=== PATIENT | female | born 1930 | race Caucasian/White ===

== ENCOUNTER 2016-10-16 19:09 | Emergency (ER) | payer MEDICARE, OTHER ==
[2016-10-16 19:10] VITALS: BMI 32.9
--- NOTE | 2016-10-16 19:21 | EDPRACDOC ---
- General Information Chief Complaint: Nausea,Vomiting,Diarrhea Stated Complaint: PAIN ALL OVER,C-DIFF Time Seen by Provider: 10/16/16 19:14 Home Medications: Home Medications Levothyroxine Sodium [Synthroid] 50 mcg PO DAILY 08/30/14 Spironolactone [Aldactone] 25 mg PO DAILY 08/30/14 Multivitamin [Daily Vitamin] 1 tab PO DAILY 01/03/15 Pravastatin Sodium 40 mg PO HS 01/03/15 Omeprazole [Prilosec] 20 mg PO DAILY 01/04/15 Aspirin/Calcium Carbonate/Mag [Aspirin Buffered 325 mg Tab] 325 mg PO DIR PRN 08/13/16 Carvedilol [Coreg] 37.5 mg PO BID 08/13/16 Ergocalciferol (Vitamin D2) [Vitamin D] 50,000 units PO FR 08/13/16 Guaifenesin [Q-Tussin] 10 mg PO Q6H PRN 08/13/16 Hydrocortisone/Aloe Vera [Hydrocortisone-Aloe 0.5% Cream] 2 gm TOP Q6H PRN 08/13 Magnesium Hydroxide [Milk of Magnesia] 30 ml PO DAILY PRN 08/13/16 Magnesium Hydroxide/Al Hydrox [Mylanta Liquid] 30 ml PO Q4H PRN 08/13/16 Neomy Sulf/Bacitra/Polymyxin B [Neosporin Ointment] 1 gm TOP Q12H PRN 08/13/16 Vitamin A 8,000 unit PO DAILY 08/13/16 Acetaminophen Ex Str Tablet [TYLENOL EXTRA STRENGTH Tablet] 500 mg PO QID Cyanocobalamin (Vitamin B-12) [B-12] 1,000 mcg PO DAILY 10/16/16 Donepezil HCl [Aricept] 10 mg PO HS 10/16/16 Fesoterodine Fumarate [Toviaz] 8 mg PO DAILY 10/16/16 Ondansetron HCl [Zofran] 4 mg PO Q4H PRN 10/16/16 Allergies/Adverse Reactions: Allergies Allergy/AdvReac Type Severity Reaction Status Date / Time CIARA Inhibitors Allergy Hives* Verified 10/16/16 20:13 Sulfa (Sulfonamide Allergy Hives* Verified 10/16/16 20:13 Antibiotics) - History of Present Illness Onset: UNKNOWN HPI: EMS STATES PT DX WITH C.DIFF TODAY, WAS BEING "ISOLATED" AT [facility], PT BECAME UPSET AT BEING ISOLATED AND DEMANDED TO COME TO THE HOSPITAL. PT REPORTS DIARRHEA X 3 TODAY, PT STATES "THEY KEEP ME LOCKED IN THAT ROOM ALL ALONE AND WON'T LET ME SEE THE DOCTOR." PT DID SEE HER PCP YESTERDAY PER HER REPORT. PT STATES SHE "HURTS ALL OVER". WHEN ASKED WHY SHE CAME TO THE HOSPITAL PT STATES "BECAUSE I ASKED TO." PT STATES SHE TOLD STAFF AT [facility] TO "CALL THE POLICE" BECAUSE SHE WAS BEING LOCKED UP. Description: Reports: Spontaneous Recent: Denies: Travel, Contact Exposure, Antibiotic Use, Laxative Use, Other Recent Ingestion of: Reports: Nothing Relevant History: Reports: None Diarrhea Quality: Reports: Watery Associated Signs & Symptoms: Reports: Abdominal Pain Pain Quality: Reports: Aching Pain Location: Reports: Diffuse ED Past Medical History - History Reviewed Yes Nurses notes reviewed and agree except as marked - Patient Medical History Cardiac History: Reports: Hypertension, Hypercholesterolemia Respiratory History: Denies: Pneumonia GI/ History: Reports: Gastroesophageal Reflux, Diverticulosis Musculoskeletal History: Reports: Arthritis Psychological History: Denies: Depression Systemic History: Reports: Hypothyroidism - Family Medical History Reports: Hypertension (MOTHER AND FATHER), Cancer (GRANDFATHER-STOMACH). Denies : Diabetes, Stroke, Cardiac Disorders - Social Medical History Smoking Status: Never smoker ETOH: None Substance Abuse: None Lives In: Assisted Living EDM Review of Systems - Review of Systems Constitutional: Fatigue, Weakness. negative: Chills, Fever Eyes: negative: Blurred Vision, Double Vision Ears: negative: Drainage Throat: negative: Pain Nose: negative: Congestion, Discharge Respiratory: negative: Cough, Shortness of Breath, Wheezing Cardiovascular: negative: Chest Pain, Palpitations Gastrointestinal: Diarrhea, Pain. negative: Nausea, Vomiting Genitourinary: negative: Dysuria, Frequency Neurological: negative: Dizziness, Headache, Numbness, Weakness Musculoskeletal: No Symptoms Reported Integumentary: No Symptoms Reported - Physical Exam Constitutional: Alert (Awake), No apparent distress Oriented to: Time, Person, Place Last recorded Vital Signs: Oxygen Pulse Oxygen Saturation O2 Device Oxygen Flow Rate Fraction of Inspired Oxygen ( FIO2) - HEENT Head: Normal ( normocephalic) Eye Exam: Normal (PERRL, EOMI, Sclera white) Oropharynx: Normal (Pharynx:Moist without exudate,Gums-no swelling) Tympanic Membrane: Normal ENT EAC: Normal TMJ: Normal Nose: No Symptoms Reported (septum midline) Neck: Normal (FROM, trachea at midline) - Respiratory/Cardiovascular Respiratory: Normal - CTA (BBS clear to auscultation without adventitious sounds ) Cardiovascular: Normal (RRR without murmur, gallop or rub) - GI Auscultation: Normal (NABS) Palpation: Normal (Soft,No rebound or guarding, non distended) Tenderness: Non tender Randolph's Sign: Negative - Musculoskeletal Back: Normal (Non-Tender) Extremities: Normal (Normal tone, Pulses 2+ No cyanosis or edema, FROM) - Integumentary Skin: Normal, Warm, Dry Lymphatics: Normal (no adenopathy) - Neurologic Memory Impaired: Normal Motor Function: Normal (Normal tone, Pulses 2+ No cyanosis or edema, FROM) Cranial Nerve: Normal (CN II-X11 intact sensation, strength 5/5) Cerebellar: Normal Mood Description: Normal Perception: Normal - Differential Diagnosis Bacterial Diarrhea, Viral Diarrhea, Inflammatory BD - Re-evaluation Re-evaluation 1 Re-evaluation Time: 21:24 (BP IMPROVED, LABS REVIEWED, PT DOES HAVE C.DIFF, LEVAQUIN AND FLAGYL GIVEN IN ED) - Results 10/16/16 19:40 10/16/16 19:40 10/16/16 21:25 Laboratory Results - last 24 hr 10/16/16 10/16/16 10/16/16 19:40 19:40 19:40 WBC 7.7 RBC 4.06 L Hgb 13.2 Hct 38.7 MCV 96 MCH 32.6 H MCHC 34.2 RDW 12.7 Plt Count 197 MPV 7.8 Neut % (Auto) 54.3 Lymph % (Auto) 31.2 [place] % (Auto) 13.1 H Eos % (Auto) 0.9 Baso % (Auto) 0.5 Absolute Neuts (auto) 4.16 Absolute Lymphs (auto) 2.39 Sodium 135 L Potassium 3.9 Chloride 97 L Carbon Dioxide 26 Anion Gap 16 BUN 15 Creatinine 0.80 Estimated GFR (MDRD) > 60 Glucose 100 H Calculated Osmolality 261 L Calcium 9.1 Total Bilirubin 0.7 AST 23 ALT 33 Alkaline Phosphatase 95 Total Protein 7.4 Albumin 4.3 Lipase 154 Urine Color Yellow Urine Clarity Clear Urine pH 6.0 Ur Specific Triplett 1.010 Urine Protein Neg Urine Glucose (UA) Neg Urine Ketones 1+ H Urine Occult Blood Neg Urine Nitrite Neg Urine Bilirubin Neg Urine Urobilinogen <2.0 Ur Leukocyte Esterase Neg Urine RBC 0-2 Urine WBC 0-2 Ur Epithelial Cells Occ Urine Mucus Occ Decision Time to Discharge: 21:25 - Departure Disposition: Home Condition: Stable Final Diagnosis: C. difficile diarrhea, Agitation Instructions: Clostridium Difficile Infection (ED) Education/Counseling Given To: Patient, Other ([facility] STAFF) Education/Counseling Given Regarding: Diagnosis, Treatment, Prognosis, Follow Up Referrals: Santino Miller MD [Primary Care Provider] - One Week Additional Instructions: TAKE ALL MEDICATIONS PRESCRIBED, START ANTIBIOTICS IN THE MORNING.
[2016-10-16] MEDS ORDERED: NS 1,000 ML IV ONE (19:23)
[2016-10-16 19:25] VITALS: TEMP 98
[2016-10-16] MEDS ORDERED: hydrALAZINE 20 MG/ML VIAL IV ONE (19:28)
[2016-10-16] MEDS ORDERED: LEVOFLOXACIN 500 MG TAB PO ONE (19:41)
[2016-10-16] MEDS ORDERED: METRONIDAZOLE 500 MG TAB PO ONE (19:41)
[2016-10-16 19:57] LABS: AUTOMATED BASOPHIL 0.5 % (0-2); AUTOMATED EOSINOPHIL 0.9 % (0-5); AUTOMATED LYMPH 31.2 % (17-44); AUTOMATED MONOCYTE 13.1 % (3-10); AUTOMATED NEUTROPHIL 54.3 % (45-76); MPV 7.8 fL (7.4-10.4)
[2016-10-16 20:08] LABS: LEUKOCYTES/URINE NEG (NEGATIVE); NITRITE/URINE NEG (NEGATIVE); RBC/URINE 0-2 (0-5); URINE OCCULT BLOOD NEG (NEG/TRACE); WBC/URINE 0-2 (0-5)
[2016-10-16] MEDS ORDERED: LORAZEPAM 2 MG/ML VIAL IM ONE (20:11)
[2016-10-16] MEDS ORDERED: LORAZEPAM 2 MG/ML VIAL IV ONE (20:12)
[2016-10-16 20:19] LABS: BLOOD UREA NITROGEN 15 MG/DL (7-17); CALCIUM 9.1 MG/DL (8.4-10.2); CALCULATED OSMOLALITY 261 MOs/Kg (270-290); CHLORIDE 97 mEq/L (98-107); GLUCOSE 100 MG/DL (70-99); SODIUM LEVEL 135 mEq/L (137-146); TOTAL PROTEIN 7.4 G/DL (6.3-8.2)
[2016-10-16 21:08] VITALS: BP 173/93; PULSE 94
== END 2016-10-16 21:45 | disposition short-term general hospital (02) ==
LOC: ED 19:09
DX: A04.7 Enterocolitis due to Clostridium difficile (principal); R45.1 Restlessness and agitation; I10 Essential (primary) hypertension; E78.00 Pure hypercholesterolemia, unspecified; K21.9 Gastro-esophageal reflux disease without esophagitis; E03.9 Hypothyroidism, unspecified; Z79.899 Other long term (current) drug therapy
CPT/HCPCS: 36415; 80053; 81001; 83690; 85025; 96361; 96374; 96375; 99284; A9270; J0360; J2060; J3490

== ENCOUNTER 2016-11-07 22:07 | Emergency (ER) | payer MEDICARE, OTHER ==
[2016-11-07 22:17] VITALS: BMI 33.3
[2016-11-07] MEDS ORDERED: LORAZEPAM 1 MG TAB PO ONE (22:38)
[2016-11-07 22:40] LABS: AUTOMATED BASOPHIL 0.9 % (0-2); AUTOMATED EOSINOPHIL 0.8 % (0-5); AUTOMATED MONOCYTE 11.6 % (3-10); AUTOMATED NEUTROPHIL 51.7 % (45-76); MPV 7.6 fL (7.4-10.4)
--- NOTE | 2016-11-07 22:40 | EDPRACDOC ---
- General Information Chief Complaint: Psychiatric Illness Stated Complaint: MEDICAL EVAL Time Seen by Provider: 11/07/16 22:09 Information Source: Patient, Dispatcher Maintenance Mode of Arrival: Ambulance Home Medications: Home Medications Levothyroxine Sodium [Synthroid] 50 mcg PO DAILY 08/30/14 Spironolactone [Aldactone] 25 mg PO DAILY 08/30/14 Multivitamin [Daily Vitamin] 1 tab PO DAILY 01/03/15 Pravastatin Sodium 40 mg PO HS 01/03/15 Omeprazole [Prilosec] 20 mg PO DAILY 01/04/15 Carvedilol [Coreg] 37.5 mg PO BID 08/13/16 Guaifenesin [Q-Tussin] 10 mg PO Q6H PRN 08/13/16 Hydrocortisone/Aloe Vera [Hydrocortisone-Aloe 0.5% Cream] 2 gm TOP Q6H PRN 08/13 Magnesium Hydroxide [Milk of Magnesia] 30 ml PO DAILY PRN 08/13/16 Magnesium Hydroxide/Al Hydrox [Mylanta Liquid] 30 ml PO Q4H PRN 08/13/16 Neomy Sulf/Bacitra/Polymyxin B [Neosporin Ointment] 1 gm TOP Q12H PRN 08/13/16 Vitamin A 8,000 unit PO DAILY 08/13/16 Acetaminophen Ex Str Tablet [TYLENOL EXTRA STRENGTH Tablet] 500 mg PO QID Cyanocobalamin (Vitamin B-12) [B-12] 1,000 mcg PO DAILY 10/16/16 Donepezil HCl [Aricept] 10 mg PO HS 10/16/16 Fesoterodine Fumarate [Toviaz] 8 mg PO DAILY 10/16/16 Ondansetron HCl [Zofran] 4 mg PO Q4H PRN 10/16/16 Alprazolam [Xanax] 0.25 mg PO TID PRN 11/07/16 Aspirin 325 mg PO .ONCE PRN 11/07/16 Cholecalciferol (Vitamin D3) [Vitamin D] 50,000 unit PO .WEEKLY ON FR 11/07/16 Rissa-Lanta 30 ml PO Q4H PRN 11/07/16 Vancomycin HCl [Vancomycin] 125 mg PO .Q6H X 10D 11/07/16 Allergies/Adverse Reactions: Allergies Allergy/AdvReac Type Severity Reaction Status Date / Time CIARA Inhibitors Allergy Hives* Verified 11/07/16 22:17 Sulfa (Sulfonamide Allergy Hives* Verified 11/07/16 22:17 Antibiotics) - History of Present Illness Onset: today HPI: PT BROUGHT BY EMS DUE TO COMBATIVENESS. THE PT SAID THAT SHE'S BEEN LOCKED IN HER ROOM SINCE BEING TX'D FOR C.DIFF. PT SAID THAT THE MED TECH GIVING HER THE MEDS TONIGHT BROUGHT HER A DIFFERENT COLORED PILL. PT SAID THAT SHE ASKED THE MED TECH TO MAKE SURE THE PILL WAS CORRECT, BUT THAT PERSON BECAME MAD AT HER. PT SAID THAT SHE FEELS FINE. PT DENIES ANY FURTHER DIARRHEA. 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 Denies : Diabetes, Stroke, Cardiac Disorders - Social Medical History Smoking Status: Never smoker ETOH: None Substance Abuse: None Lives In: Assisted Living EDM Review of Systems - Review of Systems ROS Negative Except as Marked: Yes All systems reviewed and were negative except as marked - Physical Exam Constitutional: Alert (Awake), No apparent distress Oriented to: Time, Person, Place Last recorded Vital Signs: Last Vital Signs Temp 97.9 F 11/07/16 22:09 Pulse 89 11/07/16 22:09 Resp 20 11/07/16 22:09 BP 213/103 H 11/07/16 22:09 Pulse Ox 95 11/07/16 22:09 Oxygen Pulse Oxygen Saturation 95 O2 Device Room Air Oxygen Flow Rate Fraction of Inspired Oxygen ( FIO2) - HEENT Head: Normal ( normocephalic) Eye Exam: Normal (PERRL, EOMI, Sclera white) Oropharynx: Normal (Pharynx:Moist without exudate,Gums-no swelling) ENT EAC: Normal TMJ: Normal Nose: No Symptoms Reported (septum midline) Neck: Normal (FROM, trachea at midline) - Respiratory/Cardiovascular Respiratory: Normal - CTA (BBS clear to auscultation without adventitious sounds ) Cardiovascular: Normal (RRR without murmur, gallop or rub) - GI Auscultation: Normal (NABS) Palpation: Normal (Soft,No rebound or guarding, non distended) Tenderness: Non tender Randolph's Sign: Negative - Musculoskeletal Back: Normal (Non-Tender) Extremities: Normal (Normal tone, Pulses 2+ No cyanosis or edema, FROM) - Integumentary Skin: Normal, Warm, Dry Lymphatics: Normal (no adenopathy) - Neurologic Memory Impaired: Normal Motor Function: Normal (Normal tone, Pulses 2+ No cyanosis or edema, FROM) Cranial Nerve: Normal (CN II-X11 intact sensation, strength 5/5) Cerebellar: Normal Mood Description: Normal Perception: Normal - Re-evaluation Re-evaluation 1 Re-evaluation Time: 00:08 (IMPROVED) - Results 11/07/16 22:30 11/07/16 22:30 Decision Time to Discharge: 00:08 - Departure Yes I personally saw and evaluated the patient. Disposition: Home Condition: Fair Final Diagnosis: Noncompliance with medication regimen Instructions: Anxiety (ED) Education/Counseling Given To: Patient Education/Counseling Given Regarding: Diagnosis, Treatment, Follow Up Referrals: Santino Miller MD [Primary Care Provider] - One Week Prescriptions: No Action Spironolactone [Aldactone] 25 mg PO DAILY Levothyroxine Sodium [Synthroid] 50 mcg PO DAILY Multivitamin [Daily Vitamin] 1 tab PO DAILY Pravastatin Sodium 40 mg PO HS Omeprazole [Prilosec] 20 mg PO DAILY Neomy Sulf/Bacitra/Polymyxin B [Neosporin Ointment] 1 gm TOP Q12H PRN PRN Reason: SKIN ABRASIONS Guaifenesin [Q-Tussin] 10 mg PO Q6H PRN PRN Reason: Cough Hydrocortisone/Aloe Vera [Hydrocortisone-Aloe 0.5% Cream] 2 gm TOP Q6H PRN PRN Reason: Itching Magnesium Hydroxide/Al Hydrox [Mylanta Liquid] 30 ml PO Q4H PRN PRN Reason: Heartburn Or Indigestion Vitamin A 8,000 unit PO DAILY Carvedilol [Coreg] 37.5 mg PO BID Magnesium Hydroxide [Milk of Magnesia] 30 ml PO DAILY PRN PRN Reason: CONSTIPATION Fesoterodine Fumarate [Toviaz] 8 mg PO DAILY Cyanocobalamin (Vitamin B-12) [B-12] 1,000 mcg PO DAILY Donepezil HCl [Aricept] 10 mg PO HS Acetaminophen Ex Str Tablet [TYLENOL EXTRA STRENGTH Tablet] 500 mg PO QID Ondansetron HCl [Zofran] 4 mg PO Q4H PRN PRN Reason: Vomiting Aspirin 325 mg PO .ONCE PRN PRN Reason: Chest Pain Or Discomfort Cholecalciferol (Vitamin D3) [Vitamin D] 50,000 unit PO .WEEKLY ON FR Alprazolam [Xanax] 0.25 mg PO TID PRN PRN Reason: Anxiety Vancomycin HCl [Vancomycin] 125 mg PO .Q6H X 10D Rissa-Lanta 30 ml PO Q4H PRN PRN Reason: UNK
[2016-11-07 22:47] LABS: BLOOD UREA NITROGEN 14 MG/DL (7-17); CALCIUM 9.3 MG/DL (8.4-10.2); CALCULATED OSMOLALITY 261 MOs/Kg (270-290); CHLORIDE 103 mEq/L (98-107); GLUCOSE 102 MG/DL (70-99); SODIUM LEVEL 135 mEq/L (137-146); TOTAL PROTEIN 7.3 G/DL (6.3-8.2)
[2016-11-07 23:32] LABS: hTSH 3.13 uIU/mL (0.5-4.67)
[2016-11-07 23:50] LABS: CA OXALATE 1+; LEUKOCYTES/URINE NEG (NEGATIVE); NITRITE/URINE NEG (NEGATIVE); URINE OCCULT BLOOD NEG (NEG/TRACE)
[2016-11-08 00:49] VITALS: BP 190/80; PULSE 80; TEMP 98
[2016-11-08 01:40] LABS: FREE T3 4.3 pg/mL (2.77-5.27)
== END 2016-11-08 00:35 | disposition short-term general hospital (02) ==
LOC: ED 22:07
DX: Z76.0 Encounter for issue of repeat prescription (principal)
CPT/HCPCS: 36415; 80053; 81001; 84439; 84443; 84481; 85025; 99284; J3490

== ENCOUNTER 2016-11-16 20:10 | Emergency (ER) | payer MEDICARE, OTHER ==
[2016-11-16 20:10] VITALS: BMI 33.3
[2016-11-16 20:29] VITALS: TEMP 98
[2016-11-16 20:48] LABS: AUTOMATED BASOPHIL 0.6 % (0-2); AUTOMATED EOSINOPHIL 1.6 % (0-5); AUTOMATED LYMPH 24.7 % (17-44); AUTOMATED MONOCYTE 13.6 % (3-10); AUTOMATED NEUTROPHIL 59.5 % (45-76); MPV 7.6 fL (7.4-10.4)
[2016-11-16 20:54] LABS: BLOOD UREA NITROGEN 26 MG/DL (7-17); CALCIUM 9.1 MG/DL (8.4-10.2); CALCULATED OSMOLALITY 274 MOs/Kg (270-290); CHLORIDE 103 mEq/L (98-107); GLUCOSE 103 mg/dL (70-99); SODIUM LEVEL 140 mEq/L (137-146); TOTAL PROTEIN 7.3 G/DL (6.3-8.2)
[2016-11-16 20:57] LABS: PARTIAL THROMB. TIME 21.5 SEC (22-35); PT-INR 1.1
--- NOTE | 2016-11-16 21:12 | DIRPT ---
CLINICAL DATA: Chest pain for 2 days. EXAM: PORTABLE CHEST 1 VIEW COMPARISON: Chest radiograph August 11, 2016 FINDINGS: Cardiac silhouette is mildly enlarged low inspiratory examination. Fullness of pulmonary david, with increased bronchovascular markings. No pleural effusion or focal consolidation. No pneumothorax. Soft tissue planes and included osseous structures are normal. IMPRESSION: Mild bronchitic changes versus mild pulmonary vascular congestion in this low inspiratory portable examination. Electronically Signed By: Kenny Ly M.D. On: 11/16/2016 21:09
[2016-11-16] MEDS ORDERED: hydrALAZINE 20 MG/ML VIAL IV ONE (21:30)
--- NOTE | 2016-11-16 21:30 | EDPRACDOC ---
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, [place] Mode Of Arrival: Ambulance Home Medications: Home Medications Levothyroxine Sodium [Synthroid] 50 mcg PO DAILY 08/30/14 Spironolactone [Aldactone] 25 mg PO DAILY 08/30/14 Multivitamin [Daily Vitamin] 1 tab PO DAILY 01/03/15 Pravastatin Sodium 40 mg PO HS 01/03/15 Omeprazole [Prilosec] 20 mg PO DAILY 01/04/15 Carvedilol [Coreg] 37.5 mg PO BID 08/13/16 Guaifenesin [Q-Tussin] 10 mg PO Q6H PRN 08/13/16 Hydrocortisone/Aloe Vera [Hydrocortisone-Aloe 0.5% Cream] 2 gm TOP Q6H PRN 08/13 Magnesium Hydroxide [Milk of Magnesia] 30 ml PO DAILY PRN 08/13/16 Magnesium Hydroxide/Al Hydrox [Mylanta Liquid] 30 ml PO Q4H PRN 08/13/16 Neomy Sulf/Bacitra/Polymyxin B [Neosporin Ointment] 1 gm TOP Q12H PRN 08/13/16 Vitamin A 8,000 unit PO DAILY 08/13/16 Acetaminophen Ex Str Tablet [TYLENOL EXTRA STRENGTH Tablet] 500 mg PO QID Cyanocobalamin (Vitamin B-12) [B-12] 1,000 mcg PO DAILY 10/16/16 Donepezil HCl [Aricept] 10 mg PO HS 10/16/16 Fesoterodine Fumarate [Toviaz] 8 mg PO DAILY 10/16/16 Ondansetron HCl [Zofran] 4 mg PO Q4H PRN 10/16/16 Aspirin 325 mg PO .ONCE PRN 11/07/16 Cholecalciferol (Vitamin D3) [Vitamin D] 50,000 unit PO FR 11/07/16 Rissa-Lanta 30 ml PO Q4H PRN 11/07/16 Vancomycin HCl [Vancomycin] 125 mg PO .Q6H X 10D 11/07/16 Quetiapine Fumarate [Seroquel] 50 mg PO BID 11/16/16 Allergies/Adverse Reactions: Allergies Allergy/AdvReac Type Severity Reaction Status Date / Time CIARA Inhibitors Allergy Hives* Verified 11/07/16 22:17 Sulfa (Sulfonamide Allergy Hives* Verified 11/07/16 22:17 Antibiotics) - History of Present Illness Onset: 11/16/16 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 Medications/Treatment PUBLIC RELATIONS COORDINATOR Treated With Medication PUBLIC RELATIONS 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 Denies : Diabetes, Stroke, Cardiac Disorders - Social Medical History Smoking Status: Never smoker - Physical Exam Last recorded Vital Signs: Last Vital Signs Temp 98.0 F 11/16/16 20:15 Pulse 81 11/16/16 20:48 Resp 26 H 11/16/16 20:48 BP 205/75 H 11/16/16 20:48 Pulse Ox 92 11/16/16 20:48 Oxygen Pulse Oxygen Saturation 92 O2 Device Room Air Oxygen Flow Rate Fraction of Inspired Oxygen ( FIO2) - Results 11/16/16 20:35 11/16/16 20:35 WBC 7.1 xk/uL (3.8-10.8) 11/16/16 20:35 RBC 4.06 xM/uL (4.20-5.40) L 11/16/16 20:35 Hgb 13.0 g/dL (12.0-16.0) 11/16/16 20:35 Hct 39.2 % (36-47) 11/16/16 20:35 MCV 97 fL (81-99) 11/16/16 20:35 MCH 31.9 pg (27-32) 11/16/16 20:35 MCHC 33.1 g/dl (33-36) 11/16/16 20:35 RDW 12.8 % (11.5-14.5) 11/16/16 20:35 Plt Count 153 xk/uL (130-400) 11/16/16 20:35 MPV 7.6 fL (7.4-10.4) 11/16/16 20:35 Neut % (Auto) 59.5 % (45-76) 11/16/16 20:35 Lymph % (Auto) 24.7 % (17-44) 11/16/16 20:35 [place] % (Auto) 13.6 % (3-10) H 11/16/16 20:35 Eos % (Auto) 1.6 % (0-5) 11/16/16 20:35 Baso % (Auto) 0.6 % (0-2) 11/16/16 20:35 Absolute Neuts (auto) 4.19 xk/uL (1.7-8.2) 11/16/16 20:35 Absolute Lymphs (auto) 1.70 xk/uL (0.65-4.75) 11/16/16 20:35 PT 11.3 SEC (9.2-11.2) H 11/16/16 20:35 INR 1.1 11/16/16 20:35 APTT 21.5 SEC (22-35) L 11/16/16 20:35 Sodium 140 mEq/L (137-146) 11/16/16 20:35 Potassium 3.7 mEq/L (3.5-5.1) 11/16/16 20:35 Chloride 103 mEq/L (98-107) 11/16/16 20:35 Carbon Dioxide 26 mMOL/L (22-33) 11/16/16 20:35 Anion Gap 15 mEq/L (8-16) 11/16/16 20:35 BUN 26 MG/DL (7-17) H 11/16/16 20:35 Creatinine 0.90 MG/DL (0.52-1.04) 11/16/16 20:35 Estimated GFR (MDRD) 59 mL/min (>=60) L 11/16/16 20:35 Glucose 103 mg/dL (70-99) H 11/16/16 20:35 Calculated Osmolality 274 MOs/Kg (270-290) 11/16/16 20:35 Calcium 9.1 MG/DL (8.4-10.2) 11/16/16 20:35 Total Bilirubin 0.8 MG/DL (0.2-1.3) 11/16/16 20:35 AST 27 IU/L (14-36) 11/16/16 20:35 ALT 29 IU/L (9-52) 11/16/16 20:35 Alkaline Phosphatase 77 IU/L (55-165) 11/16/16 20:35 Troponin I < 0.01 ng/mL (<.04) 11/16/16 20:35 Total Protein 7.3 G/DL (6.3-8.2) 11/16/16 20:35 Albumin 4.2 G/DL (3.5-5.0) 11/16/16 20:35 Lab Results 11/16/16 11/16/16 11/16/16 20:35 20:35 20:35 WBC 7.1 RBC 4.06 L Hgb 13.0 Hct 39.2 MCV 97 MCH 31.9 MCHC 33.1 RDW 12.8 Plt Count 153 MPV 7.6 Neut % (Auto) 59.5 Lymph % (Auto) 24.7 [place] % (Auto) 13.6 H Eos % (Auto) 1.6 Baso % (Auto) 0.6 Absolute Neuts (auto) 4.19 Absolute Lymphs (auto) 1.70 PT 11.3 H INR 1.1 APTT 21.5 L Sodium 140 Potassium 3.7 Chloride 103 Carbon Dioxide 26 Anion Gap 15 BUN 26 H Creatinine 0.90 Estimated GFR (MDRD) 59 L Glucose 103 H Calculated Osmolality 274 Calcium 9.1 Total Bilirubin 0.8 AST 27 ALT 29 Alkaline Phosphatase 77 Troponin I < 0.01 Total Protein 7.3 Albumin 4.2 - Departure Instructions: Acute Abdominal Pain (ED) Referrals: Santino Miller MD [Primary Care Provider] - One Week Prescriptions: No Action Spironolactone [Aldactone] 25 mg PO DAILY Levothyroxine Sodium [Synthroid] 50 mcg PO DAILY Multivitamin [Daily Vitamin] 1 tab PO DAILY Pravastatin Sodium 40 mg PO HS Omeprazole [Prilosec] 20 mg PO DAILY Neomy Sulf/Bacitra/Polymyxin B [Neosporin Ointment] 1 gm TOP Q12H PRN PRN Reason: SKIN ABRASIONS Guaifenesin [Q-Tussin] 10 mg PO Q6H PRN PRN Reason: Cough Hydrocortisone/Aloe Vera [Hydrocortisone-Aloe 0.5% Cream] 2 gm TOP Q6H PRN PRN Reason: Itching Magnesium Hydroxide/Al Hydrox [Mylanta Liquid] 30 ml PO Q4H PRN PRN Reason: Heartburn Or Indigestion Vitamin A 8,000 unit PO DAILY Carvedilol [Coreg] 37.5 mg PO BID Magnesium Hydroxide [Milk of Magnesia] 30 ml PO DAILY PRN PRN Reason: CONSTIPATION Fesoterodine Fumarate [Toviaz] 8 mg PO DAILY Cyanocobalamin (Vitamin B-12) [B-12] 1,000 mcg PO DAILY Donepezil HCl [Aricept] 10 mg PO HS Acetaminophen Ex Str Tablet [TYLENOL EXTRA STRENGTH Tablet] 500 mg PO QID Ondansetron HCl [Zofran] 4 mg PO Q4H PRN PRN Reason: Vomiting Aspirin 325 mg PO .ONCE PRN PRN Reason: Chest Pain Or Discomfort Cholecalciferol (Vitamin D3) [Vitamin D] 50,000 unit PO FR Vancomycin HCl [Vancomycin] 125 mg PO .Q6H X 10D Rissa-Lanta 30 ml PO Q4H PRN PRN Reason: UNK Quetiapine Fumarate [Seroquel] 50 mg PO BID
--- NOTE | 2016-11-16 21:38 | EDPRACDOC ---
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 Home Medications: Home Medications Levothyroxine Sodium [Synthroid] 50 mcg PO DAILY 08/30/14 Spironolactone [Aldactone] 25 mg PO DAILY 08/30/14 Multivitamin [Daily Vitamin] 1 tab PO DAILY 01/03/15 Pravastatin Sodium 40 mg PO HS 01/03/15 Omeprazole [Prilosec] 20 mg PO DAILY 01/04/15 Carvedilol [Coreg] 37.5 mg PO BID 08/13/16 Guaifenesin [Q-Tussin] 10 mg PO Q6H PRN 08/13/16 Hydrocortisone/Aloe Vera [Hydrocortisone-Aloe 0.5% Cream] 2 gm TOP Q6H PRN 08/13 Magnesium Hydroxide [Milk of Magnesia] 30 ml PO DAILY PRN 08/13/16 Magnesium Hydroxide/Al Hydrox [Mylanta Liquid] 30 ml PO Q4H PRN 08/13/16 Neomy Sulf/Bacitra/Polymyxin B [Neosporin Ointment] 1 gm TOP Q12H PRN 08/13/16 Vitamin A 8,000 unit PO DAILY 08/13/16 Acetaminophen Ex Str Tablet [TYLENOL EXTRA STRENGTH Tablet] 500 mg PO QID Cyanocobalamin (Vitamin B-12) [B-12] 1,000 mcg PO DAILY 10/16/16 Donepezil HCl [Aricept] 10 mg PO HS 10/16/16 Fesoterodine Fumarate [Toviaz] 8 mg PO DAILY 10/16/16 Ondansetron HCl [Zofran] 4 mg PO Q4H PRN 10/16/16 Aspirin 325 mg PO .ONCE PRN 11/07/16 Cholecalciferol (Vitamin D3) [Vitamin D] 50,000 unit PO FR 11/07/16 Rissa-Lanta 30 ml PO Q4H PRN 11/07/16 Vancomycin HCl [Vancomycin] 125 mg PO .Q6H X 10D 11/07/16 Quetiapine Fumarate [Seroquel] 50 mg PO BID 11/16/16 Allergies/Adverse Reactions: Allergies Allergy/AdvReac Type Severity Reaction Status Date / Time CIARA Inhibitors Allergy Hives* Verified 11/07/16 22:17 Sulfa (Sulfonamide Allergy Hives* Verified 11/07/16 22:17 Antibiotics) - History of Present Illness Onset: 11/16/16 Pain Location: Reports: Epigastric Pain Context: Reports: Spontaneous Pain Severity: Mild Pain Quality: Reports: Aching Pain Radiation: Reports: No Radiation Modifying Factors: improves with: Nothing Female Associated Signs & Symptoms: Reports: Nausea Oral Intake: Normal Urinary Output: Normal Other History: HISTORY AND EXAM LIMITED BY DEMENTIA. 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 Aspirin (Dose/Time) 325mg EMS Treatment BLS IV No ED Past Medical History - History Reviewed Yes Nurses notes reviewed and agree except as marked Information Unobtainable: Yes Unable to obtain information due to patient condition - Patient Medical History Neurological History: Reports: Dementia Cardiac History: Reports: Hypertension, Hypercholesterolemia Respiratory History: Denies: Pneumonia GI/ History: Reports: Gastroesophageal Reflux, Diverticulosis Musculoskeletal History: Reports: Arthritis Psychological History: Denies: Depression Systemic History: Reports: Hypothyroidism - Family Medical History Reports: Hypertension (MOTHER AND FATHER), Cancer (GRANDFATHER-STOMACH). Denies : Diabetes, Stroke, Cardiac Disorders - Social Medical History Smoking Status: Never smoker ETOH: None Substance Abuse: None Lives In: [facility] EDM Review of Systems - Review of Systems ROS Negative Except as Marked: Yes All systems reviewed and were negative except as marked - Physical Exam Constitutional: No apparent distress, Alert (Awake), Other (PT PLEASANTLY DEMENTED) Oriented to: Time, Person, Place Last recorded Vital Signs: Last Vital Signs Temp 98.0 F 11/16/16 20:15 Pulse 92 11/17/16 00:12 Resp 22 11/17/16 00:12 BP 160/87 11/17/16 00:12 Pulse Ox 94 11/17/16 00:12 Oxygen Pulse Oxygen Saturation 94 O2 Device Room Air Oxygen Flow Rate Fraction of Inspired Oxygen ( FIO2) - HEENT Head: Normal ( normocephalic) Eye Exam: Normal (PERRL, EOMI, Sclera white) Oropharynx: Normal (Pharynx:Moist without exudate,Gums-no swelling) Nose: No Symptoms Reported (septum midline) Neck: Normal (FROM, trachea at midline) - Respiratory/Cardiovascular Respiratory: Normal - CTA (BBS clear to auscultation without adventitious sounds ) Cardiovascular: Normal (RRR without murmur, gallop or rub) - GI Auscultation: Normal (NABS) Palpation: Normal (Soft,No rebound or guarding, non distended) Tenderness: Non tender Randolph's Sign: Negative - Musculoskeletal Back: Normal (Non-Tender) Extremities: Normal (Normal tone, Pulses 2+ No cyanosis or edema, FROM) - Integumentary Skin: Normal, Warm, Dry Lymphatics: Normal (no adenopathy) - Neurologic Memory Impaired: Normal Motor Function: Normal (Normal tone, Pulses 2+ No cyanosis or edema, FROM) Cranial Nerve: Normal (CN II-X11 intact sensation, strength 5/5) Cerebellar: Normal Mood Description: Normal Perception: Normal - Re-evaluation Re-evaluation 2 Re-evaluation Time: 00:13 (PT GETTING AGITATED RESTLESS (?SUN DOWNING). STILL NO OBV ABN. ) AT 86 YOA AND DEMENTIA / [place], PT WOULD NOT BE A CARDIAC CATH CANDIDATE. APPROP MEDICALLY TREATMENT. CARE ENDORSED TO DR HARVEY WITH PT IS STABLE CONDITION WITH REC FOR D/C TO LONGTERM IF 2ND CE NEG. - Results 11/16/16 20:35 11/16/16 20:35 WBC 7.1 xk/uL (3.8-10.8) 11/16/16 20:35 RBC 4.06 xM/uL (4.20-5.40) L 11/16/16 20:35 Hgb 13.0 g/dL (12.0-16.0) 11/16/16 20:35 Hct 39.2 % (36-47) 11/16/16 20:35 MCV 97 fL (81-99) 11/16/16 20:35 MCH 31.9 pg (27-32) 11/16/16 20:35 MCHC 33.1 g/dl (33-36) 11/16/16 20:35 RDW 12.8 % (11.5-14.5) 11/16/16 20:35 Plt Count 153 xk/uL (130-400) 11/16/16 20:35 MPV 7.6 fL (7.4-10.4) 11/16/16 20:35 Neut % (Auto) 59.5 % (45-76) 11/16/16 20:35 Lymph % (Auto) 24.7 % (17-44) 11/16/16 20:35 Marshall % (Auto) 13.6 % (3-10) H 11/16/16 20:35 Eos % (Auto) 1.6 % (0-5) 11/16/16 20:35 Baso % (Auto) 0.6 % (0-2) 11/16/16 20:35 Absolute Neuts (auto) 4.19 xk/uL (1.7-8.2) 11/16/16 20:35 Absolute Lymphs (auto) 1.70 xk/uL (0.65-4.75) 11/16/16 20:35 PT 11.3 SEC (9.2-11.2) H 11/16/16 20:35 INR 1.1 11/16/16 20:35 APTT 21.5 SEC (22-35) L 11/16/16 20:35 Sodium 140 mEq/L (137-146) 11/16/16 20:35 Potassium 3.7 mEq/L (3.5-5.1) 11/16/16 20:35 Chloride 103 mEq/L (98-107) 11/16/16 20:35 Carbon Dioxide 26 mMOL/L (22-33) 11/16/16 20:35 Anion Gap 15 mEq/L (8-16) 11/16/16 20:35 BUN 26 MG/DL (7-17) H 11/16/16 20:35 Creatinine 0.90 MG/DL (0.52-1.04) 11/16/16 20:35 Estimated GFR (MDRD) 59 mL/min (>=60) L 11/16/16 20:35 Glucose 103 mg/dL (70-99) H 11/16/16 20:35 Calculated Osmolality 274 MOs/Kg (270-290) 11/16/16 20:35 Calcium 9.1 MG/DL (8.4-10.2) 11/16/16 20:35 Total Bilirubin 0.8 MG/DL (0.2-1.3) 11/16/16 20:35 AST 27 IU/L (14-36) 11/16/16 20:35 ALT 29 IU/L (9-52) 11/16/16 20:35 Alkaline Phosphatase 77 IU/L (55-165) 11/16/16 20:35 Troponin I < 0.01 ng/mL (<.04) 11/16/16 20:35 Total Protein 7.3 G/DL (6.3-8.2) 11/16/16 20:35 Albumin 4.2 G/DL (3.5-5.0) 11/16/16 20:35 Lipase 152 U/L (23-300) 11/16/16 20:35 Urine Color Jada 11/16/16 22:20 Urine Clarity Cldy 11/16/16 22:20 Urine pH 5.0 (5.0-8.0) 11/16/16 22:20 Ur Specific [place] 1.030 (1.003-1.035) 11/16/16 22:20 Urine Protein 1+ (NEG/TRACE) H 11/16/16 22:20 Urine Glucose (UA) Neg (NEGATIVE) 11/16/16 22:20 Urine Ketones 1+ (NEGATIVE) H 11/16/16 22:20 Urine Occult Blood Neg (NEG/TRACE) 11/16/16 22:20 Urine Nitrite Neg (NEGATIVE) 11/16/16 22:20 Urine Bilirubin Neg (NEGATIVE) 11/16/16 22:20 Urine Urobilinogen <2.0 MG/DL (0-1) 11/16/16 22:20 Ur Leukocyte Esterase Neg (NEGATIVE) 11/16/16 22:20 Urine RBC 20-30 (0-5) H 11/16/16 22:20 Urine WBC 20-30 (0-5) H 11/16/16 22:20 Ur Epithelial Cells 3+ 11/16/16 22:20 Calcium Oxalate Crystal 2+ 11/16/16 22:20 Urine Bacteria Few (NEG/FEW) 11/16/16 22:20 Urine Mucus Mod (NEG/OCC) H 11/16/16 22:20 Lab Results 11/16/16 11/16/16 11/16/16 22:20 20:35 20:35 WBC RBC Hgb Hct MCV MCH MCHC RDW Plt Count MPV Neut % (Auto) Lymph % (Auto) Marshall % (Auto) Eos % (Auto) Baso % (Auto) Absolute Neuts (auto) Absolute Lymphs (auto) PT 11.3 H INR 1.1 APTT 21.5 L Sodium Potassium Chloride Carbon Dioxide Anion Gap BUN Creatinine Estimated GFR (MDRD) Glucose Calculated Osmolality Calcium Total Bilirubin AST ALT Alkaline Phosphatase Troponin I Total Protein Albumin Lipase 152 Urine Color Jada Urine Clarity Cldy Urine pH 5.0 Ur Specific [place] 1.030 Urine Protein 1+ H Urine Glucose (UA) Neg Urine Ketones 1+ H Urine Occult Blood Neg Urine Nitrite Neg Urine Bilirubin Neg Urine Urobilinogen <2.0 Ur Leukocyte Esterase Neg Urine RBC 20-30 H Urine WBC 20-30 H Ur Epithelial Cells 3+ Calcium Oxalate Crystal 2+ Urine Bacteria Few Urine Mucus Mod H 11/16/16 11/16/16 20:35 20:35 WBC 7.1 RBC 4.06 L Hgb 13.0 Hct 39.2 MCV 97 MCH 31.9 MCHC 33.1 RDW 12.8 Plt Count 153 MPV 7.6 Neut % (Auto) 59.5 Lymph % (Auto) 24.7 Marshall % (Auto) 13.6 H Eos % (Auto) 1.6 Baso % (Auto) 0.6 Absolute Neuts (auto) 4.19 Absolute Lymphs (auto) 1.70 PT INR APTT Sodium 140 Potassium 3.7 Chloride 103 Carbon Dioxide 26 Anion Gap 15 BUN 26 H Creatinine 0.90 Estimated GFR (MDRD) 59 L Glucose 103 H Calculated Osmolality 274 Calcium 9.1 Total Bilirubin 0.8 AST 27 ALT 29 Alkaline Phosphatase 77 Troponin I < 0.01 Total Protein 7.3 Albumin 4.2 Lipase Urine Color Urine Clarity Urine pH Ur Specific [place] Urine Protein Urine Glucose (UA) Urine Ketones Urine Occult Blood Urine Nitrite Urine Bilirubin Urine Urobilinogen Ur Leukocyte Esterase Urine RBC Urine WBC Ur Epithelial Cells Calcium Oxalate Crystal Urine Bacteria Urine Mucus - EKG EKG #1 EKG Time: 20:22 -: Yes EKG interpreted by me Rate: bpm: 75 [place]: Normal Rhythm: NSR Block: None Hypertrophy: None ST: Nonsp - Diagnostic Imaging Abdomen Image interpreted by: Radiologist 11/16/16 23:27 Patient Name: LARRY MAYORGA LOC: ED : 1930 AGE: 86 Order Date:11/16/16 Date of Service:02/25 Report # [id number] Ord Physician: Bibiana Avalos MD Exam # [id number] Emergency Physician: Bibiana Avalos MD Exam(s): [id number] CT/CT ABD-PELV W/IV CM CLINICAL DATA: 86-year-old female with epigastric pain. EXAM: CT ABDOMEN AND PELVIS WITH CONTRAST TECHNIQUE: Multidetector CT imaging of the abdomen and pelvis was performed using the standard protocol following bolus administration of intravenous contrast. CONTRAST: 100 cc Isovue 370 COMPARISON: CT dated 08/30/2014 FINDINGS: The visualized lung bases are clear. There is coronary vascular calcification. No intra-abdominal free air or free fluid. The previously seen small hypodense lesion in the proximal body of the pancreas appears stable. The liver, gallbladder, spleen, adrenal glands appear unremarkable. There are small nonobstructing bilateral renal calculi. There is moderate right renal parenchymal atrophy with cortical irregularity and scarring. There is no hydronephrosis on either side the visualized ureters appear unremarkable. There is apparent diffuse thickening of the bladder wall which may be partly related to underdistention. Cystitis is not excluded. Correlation with urinalysis recommended. The uterus is anteverted and grossly unremarkable. There is extensive sigmoid diverticulosis without active inflammatory changes. Moderate stool noted throughout the colon. No evidence of bowel obstruction or inflammation. There is a moderate size hiatal hernia. There is aortoiliac atherosclerotic disease. No portal venous gas. There is no adenopathy. Small fat containing umbilical hernia. Osteopenia with degenerative changes of the spine. Bilateral L5 pars defects with grade 2 L5-S1 anterolisthesis. Multilevel disc desiccation with vacuum phenomena. IMPRESSION: Diverticulosis. No evidence of bowel obstruction or inflammation. Normal appendix. Nonobstructing bilateral renal calculi. Correlation with urinalysis recommended to exclude UTI. Moderate size hiatal hernia. Electronically Signed By: Mukund Tompkins M.D. On: 11/16/2016 23:15 Electronically Signed By: Mukund Tompkins MD Electronically Signed Date/Time: 317 Dictate Date/Time: 11/16/165 Technologist: Araceli Tom Transcribed By: Andre Transcribed Date/Time: 11/16/16 2315 - Departure Condition: Stable Final Diagnosis: Chest pain, Abdominal pain Instructions: Chest Pain (ED), Acute Abdominal Pain (ED), Chest Wall Pain (ED) Education/Counseling Given To: Patient Education/Counseling Given Regarding: Diagnosis, Treatment, Prognosis Referrals: Santino Miller MD [Primary Care Provider] - One Week Prescriptions: No Action Spironolactone [Aldactone] 25 mg PO DAILY Levothyroxine Sodium [Synthroid] 50 mcg PO DAILY Multivitamin [Daily Vitamin] 1 tab PO DAILY Pravastatin Sodium 40 mg PO HS Omeprazole [Prilosec] 20 mg PO DAILY Neomy Sulf/Bacitra/Polymyxin B [Neosporin Ointment] 1 gm TOP Q12H PRN PRN Reason: SKIN ABRASIONS Guaifenesin [Q-Tussin] 10 mg PO Q6H PRN PRN Reason: Cough Hydrocortisone/Aloe Vera [Hydrocortisone-Aloe 0.5% Cream] 2 gm TOP Q6H PRN PRN Reason: Itching Magnesium Hydroxide/Al Hydrox [Mylanta Liquid] 30 ml PO Q4H PRN PRN Reason: Heartburn Or Indigestion Vitamin A 8,000 unit PO DAILY Carvedilol [Coreg] 37.5 mg PO BID Magnesium Hydroxide [Milk of Magnesia] 30 ml PO DAILY PRN PRN Reason: CONSTIPATION Fesoterodine Fumarate [Toviaz] 8 mg PO DAILY Cyanocobalamin (Vitamin B-12) [B-12] 1,000 mcg PO DAILY Donepezil HCl [Aricept] 10 mg PO HS Acetaminophen Ex Str Tablet [TYLENOL EXTRA STRENGTH Tablet] 500 mg PO QID Ondansetron HCl [Zofran] 4 mg PO Q4H PRN PRN Reason: Vomiting Aspirin 325 mg PO .ONCE PRN PRN Reason: Chest Pain Or Discomfort Cholecalciferol (Vitamin D3) [Vitamin D] 50,000 unit PO FR Vancomycin HCl [Vancomycin] 125 mg PO .Q6H X 10D Rissa-Lanta 30 ml PO Q4H PRN PRN Reason: UNK Quetiapine Fumarate [Seroquel] 50 mg PO BID
[2016-11-16] MEDS ORDERED: Pharmacy Review for Metformin - IV Contrast Given SCH (22:00)
[2016-11-16 23:12] LABS: CA OXALATE 2+; LEUKOCYTES/URINE NEG (NEGATIVE); NITRITE/URINE NEG (NEGATIVE); RBC/URINE 20-30 (0-5); URINE OCCULT BLOOD NEG (NEG/TRACE); WBC/URINE 20-30 (0-5)
--- NOTE | 2016-11-16 23:17 | DIRPT ---
CLINICAL DATA: 86-year-old female with epigastric pain. EXAM: CT ABDOMEN AND PELVIS WITH CONTRAST TECHNIQUE: Multidetector CT imaging of the abdomen and pelvis was performed using the standard protocol following bolus administration of intravenous contrast. CONTRAST: 100 cc Isovue 370 COMPARISON: CT dated 08/30/2014 FINDINGS: The visualized lung bases are clear. There is coronary vascular calcification. No intra-abdominal free air or free fluid. The previously seen small hypodense lesion in the proximal body of the pancreas appears stable. The liver, gallbladder, spleen, adrenal glands appear unremarkable. There are small nonobstructing bilateral renal calculi. There is moderate right renal parenchymal atrophy with cortical irregularity and scarring. There is no hydronephrosis on either side the visualized ureters appear unremarkable. There is apparent diffuse thickening of the bladder wall which may be partly related to underdistention. Cystitis is not excluded. Correlation with urinalysis recommended. The uterus is anteverted and grossly unremarkable. There is extensive sigmoid diverticulosis without active inflammatory changes. Moderate stool noted throughout the colon. No evidence of bowel obstruction or inflammation. There is a moderate size hiatal hernia. There is aortoiliac atherosclerotic disease. No portal venous gas. There is no adenopathy. Small fat containing umbilical hernia. Osteopenia with degenerative changes of the spine. Bilateral L5 pars defects with grade 2 L5-S1 anterolisthesis. Multilevel disc desiccation with vacuum phenomena. IMPRESSION: Diverticulosis. No evidence of bowel obstruction or inflammation. Normal appendix. Nonobstructing bilateral renal calculi. Correlation with urinalysis recommended to exclude UTI. Moderate size hiatal hernia. Electronically Signed By: Mukund Tompkins M.D. On: 11/16/2016 23:15
[2016-11-16] MEDS ORDERED: QUETIAPINE FUMARATE 25 MG TAB PO ONE (23:45)
[2016-11-17] MEDS ORDERED: LORAZEPAM 2 MG/ML VIAL IV ONE (00:31)
[2016-11-17 01:38] VITALS: BP 144/74; PULSE 74
== END 2016-11-17 01:37 | disposition home or self-care (01) ==
LOC: ED 20:10
DX: R07.9 Chest pain, unspecified (principal); R10.13 Epigastric pain; F03.90 Unspecified dementia, unspecified severity, without behavioral disturbance, psychotic disturbance, mood disturbance, and anxiety; I10 Essential (primary) hypertension; E78.00 Pure hypercholesterolemia, unspecified; K21.9 Gastro-esophageal reflux disease without esophagitis; E03.9 Hypothyroidism, unspecified; Z79.899 Other long term (current) drug therapy
CPT/HCPCS: 36415; 71010; 74177; 80053; 81001; 83690; 84484; 85025; 85610; 85730; 93005; 96374; 96375; 99284; A9270; A9698; J0360; J2060; J3490

== ENCOUNTER 2016-11-18 12:48 | Emergency (ER) | payer MEDICARE, OTHER ==
[2016-11-18 12:48] VITALS: BMI 33.3
[2016-11-18] MEDS ORDERED: NS 1,000 ML IV ONE (12:55)
[2016-11-18 13:01] VITALS: TEMP 97.6
--- NOTE | 2016-11-18 13:01 | EDPRACDOC ---
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 SHE SAID THAT SHE HAD NO ENERGY. SHE HAS FALLEN FREQUENTLY. THE PT SAID THAT SHE WAS TREATED FOR C.DIFF AND WAS RECENTLY TAKEN OFF ISOLATION PRECAUTIONS. 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 Pain Severity: Reports: None Injuries/Pain Location: Reports: no injury Reason for Fall: Reports: lightheaded Loss of Consciousness: no loss of consciousness Allergies/Adverse Reactions: Allergies CIARA Inhibitors Allergy (Verified 11/18/16 13:30) Hives* Sulfa (Sulfonamide Antibiotics) Allergy (Verified 11/18/16 13:30) Hives* Home Medications: Ambulatory Orders Levothyroxine Sodium [Synthroid] 50 mcg PO 0608/30/14 Spironolactone [Aldactone] 25 mg PO 0908/30/14 Multivitamin [Daily Vitamin] 1 [place] [address]/03/15 Pravastatin Sodium 40 mg PO 2100 01/03/15 Omeprazole [Prilosec] 20 mg PO 0900 01/04/15 Carvedilol [Coreg] 37.5 mg PO BID 08/13/16 Guaifenesin [Q-Tussin] 10 mg PO Q6H PRN 08/13/16 Magnesium Hydroxide [Milk of Magnesia] 30 ml PO DAILY PRN 08/13/16 Magnesium Hydroxide/Al Hydrox [Mylanta Liquid] 30 ml PO Q4H PRN 08/13/16 Neomy Sulf/Bacitra/Polymyxin B [Neosporin Ointment] 1 gm TOP Q12H PRN 08/13/16 Vitamin A 8,000 unit PO 0900 08/13/16 Acetaminophen Ex Str Tablet [TYLENOL EXTRA STRENGTH Tablet] 500 mg PO QID Cyanocobalamin (Vitamin B-12) [B-12] 1,000 mcg PO 0900 10/16/16 Donepezil HCl [Aricept] 10 mg PO HS 10/16/16 Fesoterodine Fumarate [Toviaz] 8 mg PO 0900 10/16/16 Ondansetron HCl [Zofran] 4 mg PO Q4H PRN 10/16/16 Aspirin 325 mg PO .ONCE PRN 11/07/16 Cholecalciferol (Vitamin D3) [Vitamin D] 50,000 unit PO FR 11/07/16 Quetiapine Fumarate [Seroquel] 50 mg PO BID 11/16/16 Fluoride Toothpaste 1 refugio MM HS 11/18/16 Magnesium Hydroxide/Al Hydrox [Mylanta Liquid] 30 ml PO Q4H PRN 11/18/16 Oral Balance Del [place] 1 refugio PO BID 11/18/16 Oral Balance Gel Dry Mouth 0.5 each PO Q2H PRN 11/18/16 ED Past Medical History - Patient Medical History Neurological History: Reports: Dementia Cardiac History: Reports: Hypertension, Hypercholesterolemia Respiratory History: Denies: Pneumonia GI/ History: Reports: Gastroesophageal Reflux, Diverticulosis Musculoskeletal History: Reports: Arthritis Psychological History: Denies: Depression Systemic History: Reports: Hypothyroidism - Family Medical History Reports: Hypertension (MOTHER AND FATHER), Cancer (GRANDFATHER-STOMACH). Denies : Diabetes, Stroke, Cardiac Disorders - Social Medical History Smoking Status: Never smoker ETOH: None Substance Abuse: None Lives In: Assisted Living EDM Review of Systems - Review of Systems ROS Negative Except as Marked: Yes All systems reviewed and were negative except as marked Constitutional: Loss of Appetite, Weakness - Physical Exam Constitutional: Alert (Awake), No apparent distress Oriented to: Time, Person, Place Last recorded Vital Signs: Oxygen Pulse Oxygen Saturation O2 Device Oxygen Flow Rate Fraction of Inspired Oxygen ( FIO2) - HEENT Head: Normal ( normocephalic) Eye Exam: Normal (PERRL, EOMI, Sclera white) Oropharynx: Normal (Pharynx:Moist without exudate,Gums-no swelling) ENT EAC: Normal TMJ: Normal Nose: No Symptoms Reported (septum midline) Neck: Normal (FROM, trachea at midline) - Respiratory/Cardiovascular Respiratory: Normal - CTA (BBS clear to auscultation without adventitious sounds ) Cardiovascular: Normal (RRR without murmur, gallop or rub) - GI Auscultation: Normal (NABS) Palpation: Normal (Soft,No rebound or guarding, non distended) Tenderness: Non tender Randolph's Sign: Negative - Musculoskeletal Back: Normal (Non-Tender) Extremities: Normal (Normal tone, Pulses 2+ No cyanosis or edema, FROM) - Integumentary Skin: Normal, Warm, Dry Lymphatics: Normal (no adenopathy) - Neurologic Memory Impaired: Normal Motor Function: Normal (Normal tone, Pulses 2+ No cyanosis or edema, FROM) Cranial Nerve: Normal (CN II-X11 intact sensation, strength 5/5) Cerebellar: Normal Mood Description: Normal Thought: Coherent Perception: Normal - Re-evaluation Re-evaluation 1 Re-evaluation Time: 14:16 (improved) - Results 11/18/16 13:08 11/18/16 13:08 - EKG EKG #1 EKG Time: 13:08 -: Yes EKG interpreted by me Rate: bpm: 71 [place]: Normal Rhythm: NSR Block: None Hypertrophy: None ST: Normal Comparison: 11/16/16 - Diagnostic Imaging Chest Image interpreted by: Radiologist Low lung volumes with basilar opacities favored to represent atelectasis. Decision Time to Discharge: 14:16 - Departure Yes I personally saw and evaluated the patient. Disposition: Home Condition: Fair Final Diagnosis: Dehydration Instructions: Dehydration (ED) Education/Counseling Given To: Patient Education/Counseling Given Regarding: Diagnosis, Treatment, Follow Up Referrals: Santino Miller MD [Primary Care Provider] - One Week Prescriptions: No Action Spironolactone [Aldactone] 25 mg PO 0900 Levothyroxine Sodium [Synthroid] 50 mcg PO 0600 Multivitamin [Daily Vitamin] 1 tab PO 0900 Pravastatin Sodium 40 mg PO 2100 Omeprazole [Prilosec] 20 mg PO 0900 Neomy Sulf/Bacitra/Polymyxin B [Neosporin Ointment] 1 gm TOP Q12H PRN PRN Reason: SKIN ABRASIONS Guaifenesin [Q-Tussin] 10 mg PO Q6H PRN PRN Reason: Cough Magnesium Hydroxide/Al Hydrox [Mylanta Liquid] 30 ml PO Q4H PRN PRN Reason: Heartburn Or Indigestion Vitamin A 8,000 unit PO 0900 Carvedilol [Coreg] 37.5 mg PO BID Magnesium Hydroxide [Milk of Magnesia] 30 ml PO DAILY PRN PRN Reason: CONSTIPATION Fesoterodine Fumarate [Toviaz] 8 mg PO 0900 Cyanocobalamin (Vitamin B-12) [B-12] 1,000 mcg PO 0900 Donepezil HCl [Aricept] 10 mg PO HS Acetaminophen Ex Str Tablet [TYLENOL EXTRA STRENGTH Tablet] 500 mg PO QID Ondansetron HCl [Zofran] 4 mg PO Q4H PRN PRN Reason: Vomiting Aspirin 325 mg PO .ONCE PRN PRN Reason: Chest Pain Or Discomfort Cholecalciferol (Vitamin D3) [Vitamin D] 50,000 unit PO FR Quetiapine Fumarate [Seroquel] 50 mg PO BID Magnesium Hydroxide/Al Hydrox [Mylanta Liquid] 30 ml PO Q4H PRN PRN Reason: STOMACH Oral Balance Gel Dry Mouth 0.5 each PO Q2H PRN PRN Reason: DRY MOUTH Oral Balance Del [place] 1 refugio PO BID Fluoride Toothpaste 1 refugio MM HS Additional Instructions: USE YOUR WALKER.
[2016-11-18 13:20] LABS: AUTOMATED BASOPHIL 0.4 % (0-2); AUTOMATED EOSINOPHIL 2.9 % (0-5); AUTOMATED LYMPH 30.3 % (17-44); AUTOMATED MONOCYTE 13.9 % (3-10); AUTOMATED NEUTROPHIL 52.5 % (45-76); MPV 7.4 fL (7.4-10.4)
[2016-11-18 13:28] LABS: BLOOD UREA NITROGEN 17 MG/DL (7-17); CALC CORRECTED 9.2 MG/DL (8.4-10.2); CALCIUM 9.1 MG/DL (8.4-10.2); CALCULATED OSMOLALITY 266 MOs/Kg (270-290); CHLORIDE 102 mEq/L (98-107); GLUCOSE 95 mg/dL (70-99); SODIUM LEVEL 137 mEq/L (137-146); TOTAL PROTEIN 6.6 G/DL (6.3-8.2)
[2016-11-18 13:34] LABS: PARTIAL THROMB. TIME 26.8 SEC (22-35); PT-INR 1.1
--- NOTE | 2016-11-18 13:45 | DIRPT ---
CLINICAL DATA: Patient with near syncopal episode. EXAM: PORTABLE CHEST 1 VIEW COMPARISON: Chest radiograph 11/16/2016 FINDINGS: Stable enlarged cardiac and mediastinal contours. Low lung volumes. No consolidative pulmonary opacities. No pleural effusion or pneumothorax. Bilateral shoulder joint degenerative changes. IMPRESSION: Low lung volumes with basilar opacities favored to represent atelectasis. Electronically Signed By: Mehdi Tomlinson M.D. On: 11/18/2016 13:42
[2016-11-18 14:10] LABS: LEUKOCYTES/URINE NEG (NEGATIVE); NITRITE/URINE NEG (NEGATIVE); RBC/URINE 0-2 (0-5); URINE OCCULT BLOOD NEG (NEG/TRACE); WBC/URINE 0-2 (0-5)
[2016-11-18 14:49] VITALS: BP 152/72; PULSE 68
== END 2016-11-18 15:30 | disposition short-term general hospital (02) ==
LOC: ED 12:48
DX: E86.0 Dehydration (principal); F03.90 Unspecified dementia, unspecified severity, without behavioral disturbance, psychotic disturbance, mood disturbance, and anxiety; I10 Essential (primary) hypertension; E78.00 Pure hypercholesterolemia, unspecified; K21.9 Gastro-esophageal reflux disease without esophagitis; E03.9 Hypothyroidism, unspecified; Z79.899 Other long term (current) drug therapy
CPT/HCPCS: 36415; 71010; 80053; 81001; 84484; 85025; 85610; 85730; 93005; 96360; 99282